=== PATIENT | male | born 1935 | race Caucasian/White ===

== ENCOUNTER 2016-10-29 23:10 | Emergency (ER) | payer OTHER ==
[~2016-10-29] VITALS: Ht 180.3 cm; Wt 89.1 kg
[2016-10-30 00:07] VITALS: BP 163/97
== END 2016-10-30 00:10 | disposition home or self-care (01) ==
LOC: EME 23:10
DX: S40.862A Insect bite (nonvenomous) of left upper arm, initial encounter (principal); S40.852A Superficial foreign body of left upper arm, initial encounter; W57.XXXA Bitten or stung by nonvenomous insect and other nonvenomous arthropods, initial encounter
CPT/HCPCS: 99281; 99283